=== PATIENT | male | born 1990 | race Caucasian/White ===

== ENCOUNTER → 2019-03-14 | Outpatient (CLI) | payer BC ==
--- NOTE | 2019-03-14 10:44 | CT ---
EXAMINATION TYPE: CT abdomen pelvis wo con DATE OF EXAM: 03/14/2019 COMPARISON: None HISTORY: RLQ pain CT DLP: 848 mGycm Automated exposure control for dose reduction was used. TECHNIQUE: Helical acquisition of images was performed from the lung bases through the pelvis. FINDINGS: LUNG BASES: No significant abnormality is appreciated. LIVER/GB: No significant abnormality is appreciated. No cholelithiasis. PANCREAS: No significant abnormality is seen. SPLEEN: No significant abnormality is seen. ADRENALS: No splenomegaly. KIDNEYS: No nephrolithiasis or hydronephrosis. FREE AIR: No free air is visualized ADENOPATHY: No greater than 1 cm short axis lymph node in the abdomen or pelvis. URINARY BLADDER: Incompletely distended. OSSEOUS STRUCTURES: No acute abnormality is seen. Scattered punctate probable bone islands are seen in the pelvis and hips. BOWEL: The appendix appears within normal limits of size without periappendiceal fat stranding measu ring 6 mm. Innumerable hyperdense foci throughout the bowel relate to ingested substance, possibly bi smuth salicylate. Long segment narrowing of the sigmoid colon on image 104 and 103 colonic spasm or s equela of inflammatory bowel disease as this is focal. No current pericolonic fat stranding. Moderate degree fecal stasis is present. No dilated large or small bowel. IMPRESSION: 1. APPENDIX IS WITHIN NORMAL LIMITS OF SIZE WITHOUT PERIAPPENDICEAL FAT STRANDING. NO EVIDENCE OF NEP HROLITHIASIS OR HYDRONEPHROSIS. NO EVIDENCE OF BOWEL OBSTRUCTION. 2. LONG SEGMENT NARROWING OF THE SIGMOID COLON COULD RELATE TO COLONIC SPASM OR SEQUELA OF CHRONIC IN FLAMMATORY BOWEL DISEASE.
== END ==
LOC: RADCTMAIN 10:08
PROVIDERS: ATTEND Nurse Practitioner Adult Health
DX: K56.699 Other intestinal obstruction unspecified as to partial versus complete obstruction (principal)
CPT/HCPCS: 74176

== ENCOUNTER → 2021-02-06 | Outpatient (CLI) | payer BC ==
--- NOTE | 2021-02-06 15:26 | ECHOS ---
STRESS ECHOCARDIOGRAM LUMASON: @@ Vial INDICATIONS: Palpitations. MEDICATIONS: Allergy medications. BASELINE HEART RATE: 97 BASELINE BLOOD PRESSURE: 130/57 MAXIMUM HEART RATE: 184 MAXIMUM BLOOD PRESSURE: 228/75 85% MPHR: 162 100% MPHR: 190 METS: 9 MAXIMUM STAGE REACHED: III TOTAL EXERCISE TIME: 8:09 CLINICAL INFORMATION: Baseline EKG shows sinus rhythm, normal axis, normal intervals. Patient exercised on Jelani protocol for a total of 8 minutes, achieving 9 METS, 97% of predicted maximal heart rate without chest pain or diagnostic ST-segment depression. Frequent PVCs are noted at peak exercise. Baseline echo shows normal left ventricular size, wall motion and systolic function. Post exercise, there is normal hyperdynamic response of all segments of myocardium noted. CONCLUSIONS: 1. Above-average exercise tolerance. 2. Negative stress test by EKG criteria. 3. Negative stress echo. KAROL / ARELI: [id number] /
== END | disposition home or self-care (01) ==
LOC: RADNMMAIN 09:03
PROVIDERS: ATTEND Family Medicine
DX: R00.2 Palpitations (principal)
CPT/HCPCS: 93351

== ENCOUNTER 2021-11-08 16:22 | Emergency (ER) | payer BC ==
[2021-11-08 16:56] VITALS: BP 143/84; PULSE 88; RESP 18
[2021-11-08] MEDS ORDERED: KETOROLAC 15 MG/ML 1 ML VIAL IVP STA (19:11)
[2021-11-08] MEDS ORDERED: SODIUM CHLORIDE 0.9% 1,000 ML IV STA (19:11)
--- NOTE | 2021-11-08 19:16 | ED ---
General Adult HPI - General Chief complaint: Abdominal Pain Stated complaint: Abd pain Time Seen by Provider: 11/08/21 18:49 Source: patient, RN notes reviewed Mode of arrival: ambulatory Limitations: no limitations - History of Present Illness Initial comments: 31-year-old male presents to the emergency Department with complaints of right upper quadrant abdominal pain that has been intermittent for the past several days. States pain has worsened over the last few days and was seen at urgent care yesterday. States an outpatient ultrasound was ordered, but the pain persists and the is cannot be done until next week. Patient states he has a sense of abdominal fullness and mild nausea, but denies vomiting, or diarrhea. Patient states he has had a decrease in oral intake, but does not feel that his diet habits exacerbate his pain. Patient denies fever, chills, headache, chest pain, shortness of breath, vomiting, diarrhea, constipation, dysuria, or hematuria. - Related Data Home Medications Medication Instructions Recorded Confirmed Calcium 280mg 280 mg PO DAILY 11/08/21 11/08/21 Cetirizine HCl [Zyrtec] 10 mg PO BID 11/08/21 11/08/21 Cholecalciferol (Vitamin D3) 125 mcg PO DAILY 11/08/21 11/08/21 [Vitamin D3 (125 MCG = 5,000 IU)] Selenium 100 mcg PO DAILY 11/08/21 11/08/21 Ubidecarenone [Co Q-10] 200 mg PO DAILY 11/08/21 11/08/21 Vitamin B Complex 1 cap PO DAILY 11/08/21 11/08/21 Vitamin E (Dl,Tocopheryl Acet) 400 unit PO DAILY 11/08/21 11/08/21 [Vitamin E (400 Iu = 180 mg)] Vitamin K2 180mg 180 mg PO DAILY 11/08/21 11/08/21 Zinc 15mg 15 mg PO DAILY 11/08/21 11/08/21 Previous Rx's Medication Instructions Recorded Ketorolac [Toradol] 10 mg PO Q8HR PRN #15 tab 11/08/21 Ondansetron Odt [Zofran Odt] 4 mg PO Q8HR PRN #10 tab 11/08/21 Allergies Allergy/AdvReac Type Severity Reaction Status Date / Time Penicillins Allergy Unknown Verified 11/08/21 20:04 Childhood Review of Systems ROS Statement: Those systems with pertinent positive or pertinent negative responses have been documented in the HPI. ROS Other: All systems not noted in ROS Statement are negative. Past Medical History Additional Past Medical History / Comment(s): iron deficiency History of Any Multi-Drug Resistant Organisms: None Reported Past Surgical History: No Surgical Hx Reported Past Psychological History: No Psychological Hx Reported Smoking Status: Never smoker Past Alcohol Use History: Occasional Past Drug Use History: None Reported General Exam Limitations: no limitations (Developed, well-nourished male in no acute distress. Initial temperature 99.8, pulse 88, respirations 18, blood pressure 143/84, pulse ox 98% on room air.) General appearance: alert, in no apparent distress ENT exam: Present: normal exam, normal oropharynx, mucous membranes moist Respiratory exam: Present: normal lung sounds bilaterally. Absent: respiratory distress, wheezes, rales, rhonchi, stridor Cardiovascular Exam: Present: regular rate, normal rhythm, normal heart sounds. Absent: systolic murmur, diastolic murmur, rubs, gallop, clicks GI/Abdominal exam: Present: soft, tenderness (Diffuse right upper quadrant pain upon palpation), normal bowel sounds. Absent: distended, guarding, rebound, ri gid Back exam: Absent: CVA tenderness (R), CVA tenderness (L) Neurological exam: Present: alert, oriented X3, CN II-XII intact Psychiatric exam: Present: normal affect, normal mood Skin exam: Present: warm, dry, intact, normal color. Absent: rash Course Vital Signs 11/08/21 11/08/21 16:51 21:55 Temperature 99.8 F H 98.2 F Pulse Rate 88 Respiratory 18 Rate Blood Pressure 143/84 O2 Sat by Pulse 98 Oximetry - Reevaluation(s) Reevaluation #1: 11/08/21 21:00 Upon reexamination, patient is resting comfortably with no pain or nausea. Results from work-up were discussed. Explained that further imaging could be done, though not indicated based on laboratory findings and physical exam. Sen salinaclementina is agreeable to outpatient follow up as he is established with a PCP. Medical Decision Making - Medical Decision Making 31-year-old male with a history of iron deficiency presents to the emergency department for evaluation of right upper quadrant abdominal pain. Upon exam, patient is well-appearing and in no acute distress. Vital signs are stable. He is afebrile and nontoxic in appearance. Patient does have right upper quadrant tenderness upon palpation. Pain is nonradiating. Accompanied by mild nausea, but no vomiting or diarrhea. Pain is not worsened with oral intake. Espressos concerning for gallbladder disease. Laboratory studies were obtained and are unremarkable. Ultrasound of the right upper quadrant is negative. Patient achieved relief of symptoms with IV fluids, Toradol, and Zofran. Findings were reviewed with patient at length. Discussed option of further imaging versus outpatient follow-up. Patient is established with PCP therefore opts to see his primary care provider for further evaluation and treatment. He will be discharged home with prescriptions for Zofran and Toradol. Return parameters w ere discussed in detail. Patient and spouse verbalized understanding and agreed with this plan. This patient's care was discussed with my attending Dr. Muñoz. - Lab Data Result diagrams: 11/08/21 20:17 11/08/21 20:17 Lab Results 11/08/21 11/08/21 11/08/21 Range/Units 20:17 20:17 20:17 WBC 8.5 (3.8-10.6) k/uL RBC 5.54 (4.30-5.90) m/uL Hgb 16.4 (13.0-17.5) gm/dL Hct 49.9 (39.0-53.0) % MCV 90.1 (80.0-100.0) fL MCH 29.6 (25.0-35.0) pg MCHC 32.9 (31.0-37.0) g/dL RDW 12.5 (11.5-15.5) % Plt Count 189 (150-450) k/uL MPV 7.9 Neutrophils % 65 % Lymphocytes % 24 % Monocytes % 6 % Eosinophils % 2 % Basophils % 1 % Neutrophils # 5.5 (1.3-7.7) k/uL Lymphocytes # 2.1 (1.0-4.8) k/uL Monocytes # 0.5 (0-1.0) k/uL Eosinophils # 0.2 (0-0.7) k/uL Basophils # 0.1 (0-0.2) k/uL Sodium 139 (137-145) mmol/L Potassium 4.1 (3.5-5.1) mmol/L Chloride 104 (98-107) mmol/L Carbon Dioxide 26 (22-30) mmol/L Anion Gap 9 mmol/L BUN 17 (9-20) mg/dL Creatinine 0.93 (0.66-1.25) mg/dL Est GFR (CKD-EPI)AfAm >90 (>60 ml/min/1.73 sqM) Est GFR (CKD-EPI)NonAf >90 (>60 ml/min/1.73 sqM) Glucose 85 (74-99) mg/dL Plasma Lactic Acid Erick 0.8 (0.7-2.0) mmol/L Calcium 10.5 H (8.4-10.2) mg/dL Total Bilirubin 0.5 (0.2-1.3) mg/dL AST 30 (17-59) U/L ALT 40 (4-49) U/L Alkaline Phosphatase 47 (38-126) U/L Total Protein 7.2 (6.3-8.2) g/dL Albumin 4.3 (3.5-5.0) g/dL Amylase 58 (30-110) U/L Lipase 106 (23-300) U/L - Radiology Data Radiology results: report reviewed, image reviewed Ultrasound of the right upper quadrant was obtained. Report was reviewed in its entirety. Impression per Dr. Quinones's #1 no evidence of acute cholecystitis. #2 visualized liver and pancreas appear within normal limits. #3 limited assessment of the common duct measures up to 5 mm. #4 unremarkable right kidney. Disposition Clinical Impression: Right upper quadrant abdominal pain Disposition: HOME SELF-CARE Condition: Stable Instructions (If sedation given, give patient instructions): Abdominal Pain (ED) Additional Instructions: Please follow-up with your PCP as we discussed. Informed them that you were seen in the emergency department and had lab work and an ultrasound done so that they are aware to be looking for these records. If you take Toradol for pain, do not take Motrin, Advil, Aleve, or naproxen. Continue taking your regular home medications. Return to the emergency department with any new, worsening, or concerning symptoms. Prescriptions: Ketorolac [Toradol] 10 mg PO Q8HR PRN #15 tab PRN Reason: Pain Ondansetron Odt [Zofran Odt] 4 mg PO Q8HR PRN #10 tab PRN Reason: Nausea Is patient prescribed a controlled substance at d/c from ED?: No Referrals: Foster Lion MD [Primary Care Provider] - 1-2 days Time of Disposition: 21:38
--- NOTE | 2021-11-08 20:58 | US ---
EXAMINATION TYPE: US abdomen limited DATE OF EXAM: 11/08/2021 COMPARISON: NONE CLINICAL HISTORY: RUQ pain. RUQ pain x 3 days EXAM MEASUREMENTS: Liver Length: 14.7 cm Gallbladder Wall: 0.3 cm CBD: 0.5 cm Right Kidney: 9.6 x 4.6 x 5.4 cm overlying bowel gas obscures imaging Pancreas: portion seen appears wnl Liver: unable to see left lobe due to overlying bowel gas, right lobe intercostal views appeared wnl Gallbladder: wnl Evidence for sonographic Ballard's sign: yes CBD: limited views appear wnl Right Kidney: wnl IMPRESSION: 1. No evidence of acute cholecystitis. 2. Visualized liver and pancreas appear within normal limits. 3. Limited assessment of the common duct measures up to 5 mm. 4. Unremarkable right kidney.
[2021-11-08 21:01] LABS: Basophils # (A) 0.1 k/uL (0-0.2); Basophils % (A) 1 %; Eosinophils # (A) 0.2 k/uL (0-0.7); Eosinophils % (A) 2 %; HCT 49.9 % (39.0-53.0); HGB 16.4 gm/dL (13.0-17.5); Lymphocytes # (A) 2.1 k/uL (1.0-4.8); Lymphocytes % (A) 24 %; MCH 29.6 pg (25.0-35.0); MCHC 32.9 g/dL (31.0-37.0); MCV 90.1 fL (80.0-100.0); Mean Platelet Volume 7.9; Monocytes # (A) 0.5 k/uL (0-1.0); Monocytes % (A) 6 %; Neutrophils # (A) 5.5 k/uL (1.3-7.7); Neutrophils % (A) 65 %; Platelet Count 189 k/uL (150-450); RBC 5.54 m/uL (4.30-5.90); RDW 12.5 % (11.5-15.5); WBC 8.5 k/uL (3.8-10.6)
[2021-11-08 21:07] LABS: ALT 40 U/L (4-49); AST 30 U/L (17-59); African American GFR (CKD) >90 (>60 ml/min/1.73 sqM); Albumin 4.3 g/dL (3.5-5.0); Alkaline Phosphatase 47 U/L (38-126); Amylase 58 U/L (30-110); Anion Gap 9 mmol/L; Blood Urea Nitrogen 17 mg/dL (9-20); Calcium 10.5 mg/dL (8.4-10.2); Carbon Dioxide 26 mmol/L (22-30); Chloride 104 mmol/L (98-107); Glucose 85 mg/dL (74-99); Lipase 106 U/L (23-300); Non-African American GFR(CKD) >90 (>60 ml/min/1.73 sqM); Potassium 4.1 mmol/L (3.5-5.1); Sodium 139 mmol/L (137-145); Total Bilirubin 0.5 mg/dL (0.2-1.3); Total Protein 7.2 g/dL (6.3-8.2)
[2021-11-08 22:00] VITALS: TEMP 98.2
== END 2021-11-08 21:56 | disposition home or self-care (01) ==
LOC: EC 16:22
DX: R10.11 Right upper quadrant pain (principal); Z72.89 Other problems related to lifestyle
CPT/HCPCS: 36415; 80053; 82150; 83605; 83690; 85025; 76705; 99284; 96374; 96361; J1885